=== PATIENT | male | born 1980 | race Caucasian/White ===

== ENCOUNTER 2016-10-31 11:28 | Emergency (ER) | payer SELFPAY ==
[~2016-10-31] VITALS: Ht 177.8 cm; Wt 110.0 kg
[~2016-10-31 11:28] MED LIST: AMOX875T PO; HYDR-3533 PO; IBUP800T23 PO; MAGICADU2 SWISH-SWAL
[2016-10-31 11:44] VITALS: BP 128/80; PULSE 76; RESP 16; TEMP 98; O2SAT 96
[2016-10-31] MEDS ORDERED: KETOROLAC TROMETHAMINE 60 MG/2 ML (IM) VIAL IM ONE (12:30)
--- NOTE | 2016-10-31 12:34 | PD ---
HPI Chief Complaint: Musculoskeletal Complaint Time Seen by Provider: 12:20 Travel History International Travel<30 days: No Contact w/Intl Traveler<30days: No Traveled to known affect area: No History of Present Illness HPI 36-year-old male presents for evaluation of right knee pain. He reports that he has had issues with intermittent pain and "popping sensation" in his right knee for the past year. He reports that yesterday evening he kicked his leg out in order to remove the blanket on his bed from his foot. Since then he has had generalized pain in the right knee which is worse than usual. The pain is an aching pain, constant, worse with extension or flexion of the leg as well as with ambulation. He has not tried using any [id number] medications for symptom relief. He has no other complaints at this time. [facility] Past Medical History Bipolar Disorder: Yes Anxiety: Yes Depression: Yes (bipolar) Diminished Hearing: No Immunizations Current: Yes Past Surgical History Oral Surgery: Yes (ORAL SURGERY-TEETH EXTRACTIONS) Social History Alcohol Use: No Tobacco Use: Yes (1/2 PPD) Substance Use: No Allergies-Medications (Allergen,Severity, Reaction): Coded Allergies: No Known Allergies (Unverified , 10/31/16) Reported Meds & Prescriptions Reported Meds & Active Scripts Active Diclofenac Sodium DR (Diclofenac Sodium) 75 Mg Tabdr 75 Mg PO BID 10 Days Review of Systems General / Constitutional: No: Fever, Chills Musculoskeletal: Positive: Limited ROM, Pain Physical Exam Narrative GENERAL: Well-developed well-nourished male who appears anxious. SKIN: Warm and dry. HEAD: Atraumatic. Normocephalic. CARDIOVASCULAR: Regular rate and rhythm. No murmur appreciated. RESPIRATORY: No accessory muscle use. Clear to auscultation. Breath sounds equal bilaterally. MUSCULOSKELETAL: Mild effusion to the right knee joint is surface. No erythema. There is pain with passive/active flexion and extension of the right knee. There is some crepitus to the right knee. Some tenderness to palpation to the inferior aspect of the right knee joint. Stress examination is deferred secondary to pain. NEUROLOGICAL: Awake and alert. No obvious cranial nerve deficits. Motor grossly within normal limits. Normal speech. Data Data Last Documented VS Vital Signs Date Time Temp Pulse Resp B/P Pulse Ox O2 Delivery O2 Flow Rate FiO2 10/31/16 11:44 98.0 76 16 128/80 96 Room Air Orders Ketorolac Inj (Toradol Inj) (10/31/16 12:30) Knee, Ltd (1 Or 2vws) (10/31/16 ) Splint Or Brace Apply/Monitor (10/31/16 12:35) Crutches (10/31/16 12:35) MDM Medical Decision Making Medical Screen Exam Complete: Yes Emergency Medical Condition: Yes Medical Record Reviewed: Yes Differential Diagnosis Chronic meniscal disruption, ligamentous disruption, patellar dislocation/ reduction, tibial plateau fracture, sprain Narrative Course 36-year-old male with intermittent right knee pain for 1 year, worse after taking a blanket off his leg in the middle the night while in bed. On examination he appears to have a small right knee effusion, he has pain with passive and active range of motion of the right knee. Toradol injection will be administered. Extremities reveal small nonspecific knee effusion, otherwise unremarkable. The patient will be discharged with knee immobilizer, crutches. Recommended outpatient follow-up for MRI. Diagnosis Primary Impression: Internal derangement of right knee Additional Instructions: As discussed, follow-up with primary care physician for outpatient MRI imaging of the right knee for definitive diagnosis. Crutches as needed. Diclofenac with meals. Return for any emergent medical conditions. Med/Other Pt SpecificInfo: Prescription(s) given Scripts Diclofenac Sodium DR 75 Mg Tabdr75 Mg PO BID 10 Days Ref 0 Prov:Beronica Jose MD 10/31/16 Disposition: 01 DISCHARGE HOME Condition: Stable Alexis Willis Oct 31, 2016 12:34
[2016-10-31] MEDS ORDERED: DICL75TA PO (12:55)
--- NOTE | 2016-10-31 12:55 | RADRPT ---
EXAM DATE/TIME: 10/31/2016 12:39 [facility] COMPARISON: No previous studies available for comparison. INDICATIONS : Right knee pain after tweaking it in his bed this morning. MEDICAL HISTORY : None. SURGICAL HISTORY : ACL tear, right knee. ENCOUNTER: Initial ACUITY: 1 day PAIN SCORE: 10/10 LOCATION: Right knee FINDINGS: Bones of the right knee are intact. There is mild medial compartment joint space narrowing. Small eff usion present. CONCLUSION: Small nonspecific joint effusion. Mild medial compartment joint space narrowing. No fracture or subluxation of the right knee. Riaz Kolb MD on October 31, 2016 at 12:52 Board Certified Radiologist. This report was verified electronically.
== END 2016-10-31 13:33 | disposition home or self-care (01) ==
LOC: NEPD 11:28
DX: M23.91 Unspecified internal derangement of right knee (principal); M25.461 Effusion, right knee; F17.200 Nicotine dependence, unspecified, uncomplicated; Z86.59 Personal history of other mental and behavioral disorders; X58.XXXA Exposure to other specified factors, initial encounter
CPT/HCPCS: 73560; 96372; 99284; E0113; J1885; L1830

== ENCOUNTER 2017-09-16 17:09 | Emergency (ER) | payer SELFPAY ==
[~2017-09-16] VITALS: Ht 177.8 cm; Wt 109.0 kg
[~2017-09-16 17:09] MED LIST changes: -AMOX875T PO; +DICL75TA PO; -HYDR-3533 PO; -IBUP800T23 PO; -MAGICADU2 SWISH-SWAL
[2017-09-16 17:20] VITALS: BP 126/60; PULSE 76; RESP 18; TEMP 97.9; O2SAT 99
[2017-09-16 19:55] VITALS: BP 119/69; PULSE 86; RESP 18; TEMP 98; O2SAT 100
--- NOTE | 2017-09-16 19:55 | PD ---
HPI Chief Complaint: Anxiety Time Seen by Provider: 19:39 Travel History International Travel<30 days: No Contact w/Intl Traveler<30days: No Traveled to known affect area: No History of Present Illness HPI This is a 37-year-old male who reports a history of anxiety and bipolar disorder. He presents voluntarily requesting psychiatric evaluation. He reports that today he has been feeling increasing anxiety and some depression. He denies any suicidal homicidal ideation however. He reports that he has been under a lot of social stress in regards to his from him and taking their kids to another part [place] 2 years ago. He reports that he is from [place] and has been back and forth between [place] for the past 2 years. He reports that he is also under financial stress because he has a low paying job while in [place]. He does not currently see a psychiatrist and is not currently prescribed any medication for symptom relief. He denies any drug or alcohol use. He has no medical complaints at this time. PFSH Past Medical History Bipolar Disorder: Yes Anxiety: Yes Depression: Yes (bipolar) Diminished Hearing: No Psychiatric: Yes (BIPOLAR) Immunizations Current: Yes Past Surgical History Oral Surgery: Yes (ORAL SURGERY-TEETH EXTRACTIONS) Social History Alcohol Use: No Tobacco Use: Yes (/2 PPD) Substance Use: No Allergies-Medications (Allergen,Severity, Reaction): Coded Allergies: No Known Allergies (Unverified , 10/31/16) Reported Meds & Prescriptions Reported Meds & Active Scripts Active Vistaril (Hydroxyzine Pamoate) 25 Mg Cap 25 Mg PO Q6H PRN Review of Systems Except as stated in HPI: all other systems reviewed are Neg Physical Exam Narrative GENERAL: Well-developed well-nourished male in no acute distress SKIN: Warm and dry. HEAD: Atraumatic. Normocephalic. EYES: Pupils equal and round. No scleral icterus. No injection or drainage. ENT: No nasal bleeding or discharge. Mucous membranes pink and moist. NECK: Trachea midline. No JVD. CARDIOVASCULAR: Regular rate and rhythm. No murmur appreciated. RESPIRATORY: No accessory muscle use. Clear to auscultation. Breath sounds equal bilaterally. GASTROINTESTINAL: Abdomen soft, non-tender, nondistended. Hepatic and splenic margins not palpable. MUSCULOSKELETAL: No obvious deformities. No clubbing. No cyanosis. No edema. NEUROLOGICAL: Awake and alert. No obvious cranial nerve deficits. Motor grossly within normal limits. Normal speech. PSYCHIATRIC: Depressed, anxious. Insight and judgment appear normal. Data Data Last Documented VS Vital Signs Date Time Temp Pulse Resp B/P (MAP) Pulse Ox O2 Delivery O2 Flow Rate FiO2 09/16/17 19:55 98.0 86 18 119/69 (86) 100 Room Air Orders Orders Ed Discharge Order (09/16/17 20:03) MDM Medical Decision Making Medical Screen Exam Complete: Yes Emergency Medical Condition: Yes Medical Record Reviewed: Yes Differential Diagnosis Major depressive disorder, adjustment reaction, acute psychosis, substance- induced mood disorder, bipolar disorder Narrative Course 37-year-old male with history of anxiety and bipolar disorder presents for evaluation of worsening anxiety today. He does report that during his wait in the waiting room he calm down some and had some relief when he feels somewhat improved. He has had no thoughts of suicidal or homicidal ideation. He has had no hallucinations. His insight and judgment appear intact. Initially the plan was to have him remain here for psychiatric screening however he has declining at this time and says that he has to take care of his fiance's child. It seems reasonable that this patient follow-up with an outpatient basis and he was given a resource packet upon discharge. He will be given a short course of Vistaril for his acute symptoms. He understands to return for any acutely new or worsening symptoms. Diagnosis Primary Impression: Anxiety Referrals: Psychiatrist Additional Instructions: Follow-up with a psychiatrist on an outpatient basis. Return for any acute or worsening symptoms such as suicidal or homicidal thoughts. Med/Other Pt SpecificInfo: Prescription(s) given Scripts Hydroxyzine Pamoate (Vistaril) 25 Mg Cap 25 MG PO Q6H Y for ANXIETY, #15 CAP 0 Refills Prov: Calos Bull MD 09/16/17 Disposition: 01 DISCHARGE HOME Condition: Stable Alexis Willis Sep 16, 2017 19:55
[2017-09-16] MEDS ORDERED: VIST25CA PO (20:04)
== END 2017-09-16 20:59 | disposition home or self-care (01) ==
LOC: NEPD 17:09
DX: F41.9 Anxiety disorder, unspecified (principal); F31.9 Bipolar disorder, unspecified; F17.200 Nicotine dependence, unspecified, uncomplicated
CPT/HCPCS: 99283